=== PATIENT | female | born 1980 | race Caucasian/White ===

== ENCOUNTER 2023-01-19 10:00 | Outpatient (RCR) | payer BC, SELFPAY | END 2023-05-19 23:59 | disposition home or self-care (01) | PROVIDERS: PCP Family Medicine; Visit Provider Family Medicine | DX: N39.3 Stress incontinence (female) (male) (principal); R27.8 Other lack of coordination; K59.00 Constipation, unspecified; Z51.89 Encounter for other specified aftercare | CPT/HCPCS: 97110; 97112; 97162; 97535 ==

== ENCOUNTER 2023-12-15 19:13 | Outpatient (CLI) | payer OTHER, BC, SELFPAY | END 2023-12-15 19:14 | disposition home or self-care (01) | PROVIDERS: PCP Family Medicine; Visit Provider Student in an Organized Health Care Education/Training Program | DX: S19.9XXA Unspecified injury of neck, initial encounter (principal); V43.52XA Car driver injured in collision with other type car in traffic accident, initial encounter; Y92.414 Local residential or business street as the place of occurrence of the external cause | CPT/HCPCS: A0998 ==